=== PATIENT | female | born 1980 | race Caucasian/White ===

== ENCOUNTER 2018-11-07 15:41 | Emergency (ER) | payer MEDICAID ==
[2018-11-07] MEDS ORDERED: Ondansetron 4 MG/2 ML SDV IVPUSH ONE (16:23)
[2018-11-07] MEDS ORDERED: Sodium Chloride 0.9% 1,000 ML IV ONE (16:23)
[2018-11-07] MEDS ORDERED: Dicyclomine 10 MG Cap PO ONE (17:01)
--- NOTE | 2018-11-07 17:01 | EDM.PDOC ---
Addendum entered and electronically signed by Arlene Diaz PA 11/11/18 10:08 : Original Note: <Arlene Diaz - Last Filed: 11/11/18 10:07> ED HPI GENERAL MEDICAL PROBLEM - General Chief Complaint: Gastrointestinal Problem Stated Complaint: VOMITING Time Seen by Provider: 11/07/18 16:23 - Related Data Allergies Allergy/AdvReac Type Severity Reaction Status Date / Time No Known Allergies Allergy Verified 11/07/18 16:18 Home Meds: Home Meds Ciprofloxacin [Cipro] 5 ml PO BID #50 ml 11/07/18 [Rx] Course - Vital Signs Last Recorded V/S: Last Vital Signs Temp 36.5 C 11/07/18 21:40 Pulse 78 11/07/18 21:40 Resp 16 11/07/18 21:40 BP 113/72 11/07/18 21:40 Pulse Ox 99 11/07/18 21:40 - Orders/Labs/Meds Labs: Laboratory Tests 11/07/18 11/07/18 11/07/18 Range/Units 16:41 16:41 19:20 WBC 24.68 H (4.0-11.0) K/uL RBC 4.85 (4.30-5.90) M/uL Hgb 15.3 (12.0-16.0) g/dL Hct 45.3 (36.0-46.0) % MCV 93.4 (80.0-98.0) fL MCH 31.5 (27.0-32.0) pg MCHC 33.8 (31.0-37.0) g/dL RDW Std Deviation 46.1 (28.0-62.0) fl RDW Coeff of Davy 14 (11.0-15.0) % Plt Count 268 (150-400) K/uL MPV 10.20 (7.40-12.00) fL Add Manual Diff YES Neutrophils % (Manual) 76 (48.0-80.0) % Band Neutrophils % 10 % Lymphocytes % (Manual) 9 L (16.0-40.0) % Monocytes % (Manual) 5 (0.0-15.0) % Nucleated RBC % 0.0 /100WBC Absolute Seg Neuts 18.8 H (1.4-5.7) Band Neutrophils # 2.5 Lymphocytes # (Manual) 2.2 (0.6-2.4) Monocytes # (Manual) 1.2 H (0.0-0.8) Nucleated RBCs # 0 K/uL Sodium 140 (136-145) mmol/L Potassium 3.6 (3.5-5.1) mmol/L Chloride 105 (98-107) mmol/L Carbon Dioxide 25.3 (21.0-32.0) mmol/L BUN 9 (7.0-18.0) mg/dL Creatinine 0.8 (0.6-1.0) mg/dL Est Cr Clr Drug Dosing 86.64 mL/min Estimated GFR (MDRD) > 60.0 ml/min Glucose 94 (74-106) mg/dL Calcium 9.4 (8.5-10.1) mg/dL Total Bilirubin 0.3 (0.2-1.0) mg/dL AST 18 (15-37) IU/L ALT 30 (14-63) IU/L Alkaline Phosphatase 69 (46-116) U/L Total Protein 7.8 (6.4-8.2) g/dL Albumin 4.2 (3.4-5.0) g/dL Globulin 3.6 (2.6-4.0) g/dL Albumin/Globulin Ratio 1.2 (0.9-1.6) Lipase 99 (73-393) U/L Urine Color ORANGE Urine Appearance CLEAR Urine pH 5.5 (5.0-8.0) Ur Specific Mitchell >= 1.030 (1.001-1.035) Urine Protein TRACE H (NEGATIVE) mg/dL Urine Glucose (UA) NEGATIVE (NEGATIVE) mg/dL Urine Ketones NEGATIVE (NEGATIVE) mg/dL Urine Occult Blood LARGE H (NEGATIVE) Urine Nitrite NEGATIVE (NEGATIVE) Urine Bilirubin SMALL H (NEGATIVE) Urine Ictotest NEGATIVE Urine Urobilinogen 0.2 (<2.0) EU/dL Ur Leukocyte Esterase TRACE H (NEGATIVE) Urine RBC TOO NUMEROUS TO CT H (0-2/HPF) Urine WBC 1-2 (0-5/HPF) Ur Epithelial Cells OCCASIONAL (NONE-FEW) Urine Bacteria RARE (NEGATIVE) Urine HCG, Qual (NEGATIVE) 11/07/18 Range/Units 19:20 WBC (4.0-11.0) K/uL RBC (4.30-5.90) M/uL Hgb (12.0-16.0) g/dL Hct (36.0-46.0) % MCV (80.0-98.0) fL MCH (27.0-32.0) pg MCHC (31.0-37.0) g/dL RDW Std Deviation (28.0-62.0) fl RDW Coeff of Davy (11.0-15.0) % Plt Count (150-400) K/uL MPV (7.40-12.00) fL Add Manual Diff Neutrophils % (Manual) (48.0-80.0) % Band Neutrophils % % Lymphocytes % (Manual) (16.0-40.0) % Monocytes % (Manual) (0.0-15.0) % Nucleated RBC % /100WBC Absolute Seg Neuts (1.4-5.7) Band Neutrophils # Lymphocytes # (Manual) (0.6-2.4) Monocytes # (Manual) (0.0-0.8) Nucleated RBCs # K/uL Sodium (136-145) mmol/L Potassium (3.5-5.1) mmol/L Chloride (98-107) mmol/L Carbon Dioxide (21.0-32.0) mmol/L BUN (7.0-18.0) mg/dL Creatinine (0.6-1.0) mg/dL Est Cr Clr Drug Dosing mL/min Estimated GFR (MDRD) ml/min Glucose (74-106) mg/dL Calcium (8.5-10.1) mg/dL Total Bilirubin (0.2-1.0) mg/dL AST (15-37) IU/L ALT (14-63) IU/L Alkaline Phosphatase (46-116) U/L Total Protein (6.4-8.2) g/dL Albumin (3.4-5.0) g/dL Globulin (2.6-4.0) g/dL Albumin/Globulin Ratio (0.9-1.6) Lipase (73-393) U/L Urine Color Urine Appearance Urine pH (5.0-8.0) Ur Specific Mitchell (1.001-1.035) Urine Protein (NEGATIVE) mg/dL Urine Glucose (UA) (NEGATIVE) mg/dL Urine Ketones (NEGATIVE) mg/dL Urine Occult Blood (NEGATIVE) Urine Nitrite (NEGATIVE) Urine Bilirubin (NEGATIVE) Urine Ictotest Urine Urobilinogen (<2.0) EU/dL Ur Leukocyte Esterase (NEGATIVE) Urine RBC (0-2/HPF) Urine WBC (0-5/HPF) Ur Epithelial Cells (NONE-FEW) Urine Bacteria (NEGATIVE) Urine HCG, Qual NEGATIVE (NEGATIVE) Meds: Medications Discontinued Medications Generic Name Dose Route Start Last Admin Trade Name Freq PRN Reason Stop Dose Admin Dicyclomine HCl 10 mg 11/07/18 17:01 11/07/18 17:06 Bentyl PO 11/07/18 17:02 10 mg ONETIME ONE Administration Sodium Chloride 1,000 mls @ 999 mls/hr 11/07/18 16:23 11/07/18 16:44 Normal Saline IV 11/07/18 17:23 999 mls/hr BOLUS ONE Administration Ceftriaxone Sodium/Dextrose 1 50 mls @ 100 mls/hr 11/07/18 20:51 11/07/18 21: 22 gm/ Premix IV 11/07/18 21:20 100 mls/hr ONETIME ONE Administration Iopamidol 100 ml 11/07/18 20:19 11/07/18 20:19 Isovue Multipack-370 (76%) IVPUSH 11/07/18 20:20 100 ml ONETIME STA Administration Ondansetron HCl 4 mg 11/07/18 16:23 11/07/18 16:44 Zofran IVPUSH 11/07/18 16:24 4 mg ONETIME ONE Administration Departure - Departure Time of Disposition: 10:07 Disposition: Home, Self-Care 01 Clinical Impression: Gastroenteritis - Discharge Information Prescriptions: Ciprofloxacin [Cipro] 5 ml PO BID #50 ml Instructions: Abdominal Pain, Adult, Anmy-pu-[id number] Referrals: PCP,Unknown [Primary Care Provider] - Forms: ED Department Discharge <Lenora Trejo - Last Filed: 11/12/18 10:11> ED HPI GENERAL MEDICAL PROBLEM - General Source of Information: Reports: Patient History Limitations: Reports: No Limitations - History of Present Illness INITIAL COMMENTS - FREE TEXT/NARRATIVE: HISTORY AND PHYSICAL: History of present illness: Patient is a 38-year-old female presents to the ED today with concern of generalized abdominal pain and diarrhea since this afternoon. Patient patient states this morning when she woke up she had vague abdominal discomfort but not in any specific area. Patient states she went to work and began to have episodes of watery diarrhea and since has had about 5 episodes. Patient states that she has not been on any recent antibiotics. Patient states she has a history of high cholesterol but denies any other health history. Patient denies any other symptoms or concerns at this time. Patient states she is currently on her menstrual cycle. Patient denies fever, chills, chest pain, shortness of breath, or cough. Denies headache, neck stiff ness, change in vision, syncope, or near syncope. Denies nausea, vomiting,or dysuria. Has not noted any blood in urine or stool. Patient has been eating and drinking appropriately. Review of systems: As per history of present illness and below otherwise all systems reviewed and negative. Past medical history: As per history of present illness and as reviewed below otherwise noncontributory. Surgical history: As per history of present illness and as reviewed below otherwise noncontributory. Social history: See social history for further information Family history: As per history of present illness and as reviewed below otherwise noncontributory. Physical exam: General: Patient is alert, oriented, and in no acute distress. Patient sitting comfortably on exam table. HEENT: Atraumatic, normocephalic, pupils equal and reactive bilaterally, negative for conjunctival pallor or scleral icterus, mucous membranes dry, TMs normal bilaterally, throat clear, neck supple, nontender, trachea midline. No drooling or trismus noted. No meningeal signs. No hot potato voice noted. Lungs: Clear to auscultation, breath sounds equal bilaterally, chest nontender. Heart: S1S2, regular rate and rhythm without overt murmur Abdomen: Soft, nondistended, nontender. Negative for masses or hepatosplenomegaly. Negative for costovertebral tenderness. Pelvis: Stable nontender. Genitourinary: Deferred. Rectal: Deferred. Skin: Intact, warm, dry. No lesions or rashes noted. Extremities: Atraumatic, negative for cords or calf pain. Neurovascular unremarkable. Neuro: Awake, alert, oriented. Cranial nerves II through XII unremarkable. Cerebellum unremarkable. Motor and sensory unremarkable throughout. Exam nonfocal. Notes: SAURABH Murray, has assumed care of patient and will follow all remaining diagnostics and disposition. Diagnostics: CBC, CMP, UA, lipase, stool studies, ova and parasite, C. difficile, abd/pelvic CT Therapeutics: Saline, Zofran, Bentyl Prescription: Impression: Generalized Abdominal Pain Diarrhea Plan: Definitive disposition and diagnosis as appropriate pending reevaluation and review of above. Abdominal Pain Score (Numeric/FACES): 9 Past Medical History - Past Health History Medical/Surgical History: Denies Medical/Surgical History - Infectious Disease History Infectious Disease History: Reports: None Social & Family History - Family History Family Medical History: Noncontributory - Tobacco Use Smoking Status *Q: Never Smoker - Caffeine Use Caffeine Use: Reports: Coffee - Recreational Drug Use Recreational Drug Use: No ED ROS GENERAL - Review of Systems Review Of Systems: ROS reveals no pertinent complaints other than HPI. ED EXAM, GENERAL - Physical Exam Exam: See Below (see dictation) Course - Orders/Labs/Meds Labs: Laboratory Tests 11/07/18 11/07/18 11/07/18 Range/Units 16:41 16:41 19:20 WBC 24.68 H (4.0-11.0) K/uL RBC 4.85 (4.30-5.90) M/uL Hgb 15.3 (12.0-16.0) g/dL Hct 45.3 (36.0-46.0) % MCV 93.4 (80.0-98.0) fL MCH 31.5 (27.0-32.0) pg MCHC 33.8 (31.0-37.0) g/dL RDW Std Deviation 46.1 (28.0-62.0) fl RDW Coeff of Davy 14 (11.0-15.0) % Plt Count 268 (150-400) K/uL MPV 10.20 (7.40-12.00) fL Add Manual Diff YES Neutrophils % (Manual) 76 (48.0-80.0) % Band Neutrophils % 10 % Lymphocytes % (Manual) 9 L (16.0-40.0) % Monocytes % (Manual) 5 (0.0-15.0) % Nucleated RBC % 0.0 /100WBC Absolute Seg Neuts 18.8 H (1.4-5.7) Band Neutrophils # 2.5 Lymphocytes # (Manual) 2.2 (0.6-2.4) Monocytes # (Manual) 1.2 H (0.0-0.8) Nucleated RBCs # 0 K/uL Sodium 140 (136-145) mmol/L Potassium 3.6 (3.5-5.1) mmol/L Chloride 105 (98-107) mmol/L Carbon Dioxide 25.3 (21.0-32.0) mmol/L BUN 9 (7.0-18.0) mg/dL Creatinine 0.8 (0.6-1.0) mg/dL Est Cr Clr Drug Dosing 86.64 mL/min Estimated GFR (MDRD) > 60.0 ml/min Glucose 94 (74-106) mg/dL Calcium 9.4 (8.5-10.1) mg/dL Total Bilirubin 0.3 (0.2-1.0) mg/dL AST 18 (15-37) IU/L ALT 30 (14-63) IU/L Alkaline Phosphatase 69 (46-116) U/L Total Protein 7.8 (6.4-8.2) g/dL Albumin 4.2 (3.4-5.0) g/dL Globulin 3.6 (2.6-4.0) g/dL Albumin/Globulin Ratio 1.2 (0.9-1.6) Lipase 99 (73-393) U/L Urine Color ORANGE Urine Appearance CLEAR Urine pH 5.5 (5.0-8.0) Ur Specific Mitchell >= 1.030 (1.001-1.035) Urine Protein TRACE H (NEGATIVE) mg/dL Urine Glucose (UA) NEGATIVE (NEGATIVE) mg/dL Urine Ketones NEGATIVE (NEGATIVE) mg/dL Urine Occult Blood LARGE H (NEGATIVE) Urine Nitrite NEGATIVE (NEGATIVE) Urine Bilirubin SMALL H (NEGATIVE) Urine Ictotest NEGATIVE Urine Urobilinogen 0.2 (<2.0) EU/dL Ur Leukocyte Esterase TRACE H (NEGATIVE) Urine RBC TOO NUMEROUS TO CT H (0-2/HPF) Urine WBC 1-2 (0-5/HPF) Ur Epithelial Cells OCCASIONAL (NONE-FEW) Urine Bacteria RARE (NEGATIVE) Urine HCG, Qual (NEGATIVE) 11/07/18 Range/Units 19:20 WBC (4.0-11.0) K/uL RBC (4.30-5.90) M/uL Hgb (12.0-16.0) g/dL Hct (36.0-46.0) % MCV (80.0-98.0) fL MCH (27.0-32.0) pg MCHC (31.0-37.0) g/dL RDW Std Deviation (28.0-62.0) fl RDW Coeff of Davy (11.0-15.0) % Plt Count (150-400) K/uL MPV (7.40-12.00) fL Add Manual Diff Neutrophils % (Manual) (48.0-80.0) % Band Neutrophils % % Lymphocytes % (Manual) (16.0-40.0) % Monocytes % (Manual) (0.0-15.0) % Nucleated RBC % /100WBC Absolute Seg Neuts (1.4-5.7) Band Neutrophils # Lymphocytes # (Manual) (0.6-2.4) Monocytes # (Manual) (0.0-0.8) Nucleated RBCs # K/uL Sodium (136-145) mmol/L Potassium (3.5-5.1) mmol/L Chloride (98-107) mmol/L Carbon Dioxide (21.0-32.0) mmol/L BUN (7.0-18.0) mg/dL Creatinine (0.6-1.0) mg/dL Est Cr Clr Drug Dosing mL/min Estimated GFR (MDRD) ml/min Glucose (74-106) mg/dL Calcium (8.5-10.1) mg/dL Total Bilirubin (0.2-1.0) mg/dL AST (15-37) IU/L ALT (14-63) IU/L Alkaline Phosphatase (46-116) U/L Total Protein (6.4-8.2) g/dL Albumin (3.4-5.0) g/dL Globulin (2.6-4.0) g/dL Albumin/Globulin Ratio (0.9-1.6) Lipase (73-393) U/L Urine Color Urine Appearance Urine pH (5.0-8.0) Ur Specific Mitchell (1.001-1.035) Urine Protein (NEGATIVE) mg/dL Urine Glucose (UA) (NEGATIVE) mg/dL Urine Ketones (NEGATIVE) mg/dL Urine Occult Blood (NEGATIVE) Urine Nitrite (NEGATIVE) Urine Bilirubin (NEGATIVE) Urine Ictotest Urine Urobilinogen (<2.0) EU/dL Ur Leukocyte Esterase (NEGATIVE) Urine RBC (0-2/HPF) Urine WBC (0-5/HPF) Ur Epithelial Cells (NONE-FEW) Urine Bacteria (NEGATIVE) Urine HCG, Qual NEGATIVE (NEGATIVE)
[2018-11-07 17:21] LABS: CHLORIDE,CL 105 mmol/L (98-107); SODIUM,NA 140 mmol/L (136-145)
[2018-11-07] MEDS ORDERED: Iopamidol 755 MG/ML 500 ML Multipack Bottle IVPUSH STA (20:19)
--- NOTE | 2018-11-07 20:49 | CT ---
INDICATION: Diarrhea TECHNIQUE: CT abdomen and pelvis acquired with IV contrast. 100 cc Isovue 370 COMPARISON: None FINDINGS: Lower chest: Unremarkable. Liver: Unremarkable. Spleen: Unremarkable. Pancreas: Unremarkable. Gallbladder and bile ducts: Unremarkable. Kidneys: Unremarkable. Adrenal glands: Unremarkable. GI tract: Fluid filled small-bowel loops and liquid colonic stool. Correlate with gastroenteritis clinically very. Vascular structures: Unremarkable. Lymph nodes: Unremarkable. Miscellaneous: Unremarkable. No free air or significant free fluid. Pelvic Organs: Unremarkable. Bones: Unremarkable for age. IMPRESSION: Fluid filled small bowel loops and liquid colonic stool. Correlate with gastroenteritis clinically. Dictated by Mina Crowely MD @ 11/07/2018 8:48:11 PM Please note that all CT scans at this facility use dose modulation, iterative reconstruction, and/or weight-based dosing when appropriate to reduce radiation dose to as low as reasonably achievable. Dictated by: Mina Crowley MD @ 11/07/2018 20:48:19 (Electronically Signed)
[2018-11-07] MEDS ORDERED: cefTRIAXone 1 GM in Premix Bag 1 BAG IV ONE (20:51)
[2018-11-07 22:09] VITALS: BP 113/72
== END 2018-11-07 21:40 | disposition home or self-care (01) ==
LOC: MW.ED 15:41
DX: K52.9 Noninfective gastroenteritis and colitis, unspecified (principal)
CPT/HCPCS: 36415; 74177; 80053; 81001; 81025; 83690; 85025; 87086; 96361; 96365; 96375; 99284; A9270; J0696; J2405; J7040; Q9967

== ENCOUNTER 2022-04-12 16:01 | Emergency (ER) | payer MEDICAID ==
[2022-04-12 16:13] VITALS: BP 131/77; PULSE 92
== END 2022-04-12 17:05 | disposition home or self-care (01) ==
LOC: MW.ED 16:01
DX: K04.7 Periapical abscess without sinus (principal)
CPT/HCPCS: 99282

== ENCOUNTER 2022-08-14 18:45 | Emergency (ER) | payer MEDICAID ==
[2022-08-14 19:00] VITALS: BP 137/84; PULSE 88
[2022-08-14] MEDS ORDERED: Clindamycin HCl 150 MG Cap PO STA (19:09)
== END 2022-08-14 19:18 | disposition home or self-care (01) ==
LOC: MW.ED 18:45
DX: L03.011 Cellulitis of right finger (principal)
CPT/HCPCS: 99283; A9270